=== PATIENT | male | born 1985 | race Caucasian/White ===

== ENCOUNTER 2018-12-15 22:21 | Emergency (ER) | payer OTHER ==
[~2018-12-15] VITALS: Ht 172.7 cm; Wt 61.7 kg
[2018-12-15 22:36] VITALS: Ht 172.7 cm; Wt 61.7 kg
[2018-12-16 01:43] VITALS: BP 124/71
== END 2018-12-16 01:43 | disposition home or self-care (01) ==
LOC: ED 22:21
DX: M75.101 Unspecified rotator cuff tear or rupture of right shoulder, not specified as traumatic (principal)
CPT/HCPCS: J1885